=== PATIENT | male | born 1995 | race Caucasian/White ===

== ENCOUNTER 2017-09-26 17:36 | Emergency (ER) | payer BC ==
[~2017-09-26] VITALS: Ht 175.3 cm; Wt 71.2 kg
[2017-09-26] MEDS ORDERED: PERCOCET 5/31 TABLET PO (21:08)
[2017-09-26] MEDS ORDERED: KEFLEX500 MG PO (21:08)
[2017-09-26 21:40] VITALS: BP 121/63
== END 2017-09-26 21:40 | disposition home or self-care (01) ==
LOC: EME 17:36
DX: S68.622A Partial traumatic transphalangeal amputation of right middle finger, initial encounter (principal); S68.624A Partial traumatic transphalangeal amputation of right ring finger, initial encounter; S68.626A Partial traumatic transphalangeal amputation of right little finger, initial encounter; W27.0XXA Contact with workbench tool, initial encounter; Y99.0 Civilian activity done for income or pay; Z23 Encounter for immunization
CPT/HCPCS: 73130; 99281; 99284; S0020